=== PATIENT | female | born 1975 | race African-American/Black ===

== ENCOUNTER 2025-03-18 11:42 | Emergency (ER) | payer BC, SELFPAY ==
--- OUTSIDE RECORDS SUMMARY | 2025-03-17 13:15 | XMS_ITS | Encounter Summary ---
Author Organization [facility] Address [address] [place] [address] Phone Care Team Providers Care Eap Clinician Name Role Phone Casandra Merritt Primary Care Provider [phone] Roger Stevens DO Unavailable [phone] Tito Brasher MD Unavailable [phone] Tito Brasher MD Unavailable [phone] Reason for Visit * Radiology Services (Routine) - Closed Specialty Diagnoses / Procedures Referred By Mami watkins Referred To Contact Radiology Diagnoses Malignant neoplasm of overlapping sites of right breast in female, estrogen receptor positive (HCC) Use of aromatase inhibitors Encounter for screening for osteoporosis Procedures [facility] BONE DENSITOMETRY AXIAL SKELETON Mary Leal APRN, COMPUTER PROGRAMMER CHIEF [address] [place] [address], [facility] [address] [place] [address] Phone: tel: fax: Referral ID Status Reason Start Date Expiration Date Visits Re quested Visits Authorized [id number] Closed 11/05/2024 1 1 Encounter Details Date Type Department Care Team (Latest Contact Info) Description 03/17/2025 1:15 PM CDT Ancillary Procedure [facility] [address] [place] [phone] Malignant neoplasm of overlapping sites of right breast in female, estrogen receptor positive (HCC); Use of aromatase inhibitors; Encounter for screening for osteoporosis Social History Tobacco Use Types Packs/Day Years Used Date Smoking Tobacco: Former Cigarettes 0.5 6 1 996 - 2002 Smokeless Tobacco: Never Alcohol Use Standard Drinks/Week Comments Not Currently 0 (1 standard drink = 0.6 oz pur e alcohol) PHQ-2 Answer Date Recorded Total Score - Questions 1-9 0 02/01 Sexually Active Control Partners Comments Not Currently Comments Unknown Sex and Gender Information Value Date Recorded Sex Assigned at Female 02/14/2023 10:11 AM CDT Legal Sex Female 10:27 AM CDT Gender Identity Female 02/14/2023 10:11 AM CDT Sexual Orientation Not on file documented as of this encounter Plan of Treatment Upcoming Encounters Date Type Department Care Team (Late st Contact Info) Description 03/25/2025 9:15 AM CDT Lab [facility] [address] [phone] Lab, [place]alind [place] 03/25/2025 9:30 AM CDT Office Visit [facility] [address] [phone] Roger Stevens, DO [address] [place] [phone] 03/25/2025 10:00 AM CDT Clinical Support [facility] [address] [phone] Nurse, [facility] documented as of this encounter Procedures Procedure Name Priority Date/Time Associated Diagnosis Comments [facility] BONE DENSITOMETRY AXIAL SKELETON Routine 03/17/2025 1:42 PM CDT Malignant neoplasm of overlapping sites of right breast in female, estrogen receptor positive (HCC) Use of aromatase inhibitors Encounter for screening for osteoporosis documented in this encounter Results * [facility] BONE DENSITOMETRY AXIAL SKELETON (03/17/2025 1:42 PM CDT) Anatomical Region Laterality Modality BODY N/A Other Narrative 03/17/2025 3:28 PM CDT EXAMINATION: [facility] BONE DENSITOMETRY AXIAL SKELETON INDICATIONS: 50-year-old asymptomatic postmenopausal female. Malignant neoplasm of overlapping sites of right female breast. COMPARISON: DEXA scan March 30, 2023. TECHNIQUE: The bone mineral density of each site was assessed by dual energy x-ray absorptiometry. FINDINGS: Lumbar spine: The bone mineral density from L1-L4 is 1.2, which corresponds to a T-score of 0.3 and a Z-score of -0.2. Hip: The bone mineral density of the left femoral neck is 0.96, which corresponds to a T-score of -0.6 and a Z-score of -0.9. IMPRESSION Normal bone mineral density. Electronically signed by: HAMLET EVANS MD Date of Signature: 03/17/2025 15:28:17 Procedure Note Hamlet Evans MD - 03/17/2025 EXAMINATION: [facility] BONE DENSITOMETRY AXIAL SKELETON INDICATIONS: 50-year-old asymptomatic postmenopausal female. Malignant neoplasm ofoverlapping sites of right female breast. COMPARISON: DEXA scan March 30, 2023. TECHNIQUE: The bone mineral density of each site was assessed by dual energy x-rayabsorptiometry. FINDINGS: Lumbar spine: The bone mineral density from L1-L4 is 1.2, which corresponds to a T-scoreof 0.3 and a Z-score of -0.2. Hip: The bone mineral density of the left femoral neck is 0.96, whichcorresponds to a T-score of -0.6 and a Z-score of -0.9. IMPRESSION Normal bone mineral density. Electronically signed by: HAMLET EVANS MD Date of Signature: 03/17/2025 15:28:17 Mary Leal SUPERVISOR DRIED YEAST, COMPUTER PROGRAMMER CHIEF IMG DEXA ORDERABLES F inal Result documented in this encounter Visit Diagnoses Diagnosis Malignant neoplasm of overlapping sites of right breast in female, estrogen receptor positive (HCC) Use of aromatase inhibitors Encounter for screening for osteoporosis Special screening for osteoporosis documented in this encounter Additional Health Concerns Assessment Noted Time PHQ-9 Depression Total Score: 0 05/14/20 21 11:19 AM PROCESSING REP documented as of this encounter Care Teams Eap Clinician Relationship Specialty Start Date End Date Casandra Merritt [address] [place] [address] PCP - General Adult Medicine 03/24/21 Roger Stevens DO [address] [place] [phone] Consulting Physician Oncology 03/24/21 Tito Brasher MD [address] [place] [address] [phone] General Surgery 04/30/21 Tito Brasher MD [address] [place] [address] [phone] Surgeon General Surgery 04/20/21 documented as of this encounter
--- OUTSIDE RECORDS SUMMARY | 2025-03-17 13:15 | XMS_ITS | Encounter Summary ---
Author Organization [facility] Address [address] [place] [address] Phone Care Team Providers Care Proposal Writer Name Role Phone Casandra Merritt Primary Care Provider [phone] Roger Stevens DO Unavailable [phone] Tito Brasher MD Unavailable [phone] Tito Brasher MD Unavailable [phone] Reason for Visit * Radiology Services (Routine) - Closed Specialty Diagnoses / Procedures Referred By Mami watkins Referred To Contact Radiology Diagnoses Malignant neoplasm of overlapping sites of right breast in female, estrogen receptor positive (HCC) Use of aromatase inhibitors Encounter for screening for osteoporosis Procedures [facility] BONE DENSITOMETRY AXIAL SKELETON Mary Leal APRN, SECURITY ASSESSOR [address] [place] [address], [facility] [address] [place] [address] Phone: tel: fax: Referral ID Status Reason Start Date Expiration Date Visits Re quested Visits Authorized [id number] Closed 11/05/2024 1 1 Encounter Details Date Type Department Care Team (Latest Contact Info) Description 03/17/2025 1:15 PM CDT Ancillary Procedure [facility] [address] [place] [phone] Malignant neoplasm of overlapping sites of right [...] AM CDT Lab [facility] [address] [phone] Lab, [place]alind [place] 03/25/2025 9:30 AM CDT Office Visit [facility] [address] [phone] Roger Stevens, DO [address] [place] [phone] 03/25/2025 10:00 AM CDT Clinical Support [facility] [address] [phone] Nurse, [facility] documented as of this encounter Procedures Procedure Name Priority Date/Time Associated Diagnosis Comments [facility] BONE DENSITOMETRY AXIAL SKELETON Routine 03/17/2025 1:42 PM CDT Malignant neoplasm of overlapping sites of right breast in female, estrogen receptor positive (HCC) Use of aromatase inhibitors Encounter for screening for osteoporosis documented in this encounter Results * [facility] BONE DENSITOMETRY AXIAL SKELETON (03/17/2025 1:42 PM CDT) Anatomical Region Laterality Modality BODY N/A Other Narrative 03/17/2025 3:28 PM CDT EXAMINATION: [facility] BONE DENSITOMETRY AXIAL SKELETON INDICATIONS: 50-year-old asymptomatic [...] Date of Signature: 03/17/2025 15:28:17 Mary Leal WASTE PAPER HAMMERMILL OPERATOR, SECURITY ASSESSOR IMG DEXA ORDERABLES F inal Result documented in this encounter Visit Diagnoses Diagnosis Malignant neoplasm of overlapping sites of right breast in female, estrogen receptor positive (HCC) Use of aromatase inhibitors Encounter for screening for osteoporosis Special screening for osteoporosis documented in this encounter Additional Health Concerns Assessment Noted Time PHQ-9 Depression Total Score: 0 05/14/20 21 11:19 AM MOTORCYCLE FABRICATOR documented as of this encounter Care Teams Proposal Writer Relationship Specialty Start Date End Date Casandra Merritt [address] [place] [address] PCP - General Adult Medicine 03/24/21 Roger Stevens DO [address] [place] [phone] Consulting Physician Oncology 03/24/21 Tito Brasher MD [address] [place] [address] [phone] General Surgery 04/30/21 Tito Brasher MD [address] [place] [address] [phone] Surgeon General Surgery 04/20/21 documented as of this encounter
--- NOTE | ~2025-03-18 | CT_ITS ---
EXAMINATION: CT lumbar spine wo con DATE: 03/18/2025 13:36 INDICATION: Low back pain. TECHNIQUE: Computed tomography (CT) of the lumbar spine was performed without intravenous contrast. Automated exposure control and iterative reconstruction technique were employed. The dose-length product was 1073.77 mGy-cm. COMPARISON: None FINDINGS: Alignment is normal. Vertebral body heights are normal. Intervertebral disc heights are normal. The following disc levels are specifically discussed: L1-L2: There is a left foraminal protrusion. There is mild bilateral facet joint osteoarthritis. There is mild left neural foraminal stenosis. There is no central canal stenosis. L2-L3: The disc is bulging. There is mild bilateral facet joint osteoarthritis. There is mild bilateral neural foraminal stenosis. There is mild central canal stenosis. L3-L4: The disc is bulging. There is moderate right and mild left facet joint osteoarthritis. There is mild bilateral neural foraminal stenosis. There is mild central canal stenosis. L4-L5: The disc is bulging. There is severe bilateral facet joint osteoarthritis. There is mild bilateral neural foraminal stenosis. There is mild central canal stenosis. L5-S1: The disc is bulging. There is severe right and moderate left facet joint osteoarthritis. There is no neural foraminal stenosis. There is mild central canal stenosis. IMPRESSION: 1. Mild lumbar spondylosis. Reviewed, dictated and finalized at location E. IMPRESSION: 1. Mild lumbar spondylosis.
[2025-03-18 12:23] VITALS: BP 96/69; PULSE 95; RESP 18; TEMP 36.4; O2SAT 99
--- OUTSIDE RECORDS SUMMARY | 2025-03-18 13:43 | XMS_ITS ---
Author Organization [facility] Address [address] [place] [address] Phone Care Team Providers Care Lgsw Name Role Phone Casandra Merritt Primary Care Provider [phone] Roger Stevens DO Unavailable [phone] Tito Brasher MD Unavailable [phone] Tito Brasher MD Unavailable [phone] Active Problems Patient Care Coordination No te Formatting of this note migh t be different from the original. 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 Past Treatment and Therapy Plans ONCOLOGY SUPPORTIVE CARE Plan Name Start Date Discontinue Date Treatment Medications Discontinue Reason Plan Provider Cycles SUPPORT - GOSERELIN - [facility]I 2 02/10/2022 No medications scheduled. Plan Clean Up Rodney, Roger D, DO Treatment not started ONCOLOGY TREATMENT Plan Name Start Date Discontinue Date Treatment Medications Discontinue Reason Plan Provider Cycles BREAST - TAXOL WEEKLY - POST AC - [facility] 2 02/10/2023 PACLitaxel (TAXOL) chemo infusion Plan Clean Up Roger Stevens, DO 3 of 3 cycles started BREAST - DOSE-DENS E AC - [facility] 04/27/20 21 07/26/2021 cyclophosphamide (CYTOXAN) chemo infusionDOXOrubicin (ADRIAMYCIN) Regression Roger Stevens, DO 4 of 4 cycles started Lifetime Dose Tracking * Chemical Lifetime Dose Automatic Entry Manual Entr y Doxorubicin 240.659 mg/m2 (436.8 mg) 240.659 mg/m2 (4 36.8 mg) 0 mg/m2 (0 mg) Cyclophosphamide 2,402.259 mg/m2 (4,360 mg) 2,402.259 mg/m2 (4,360 mg) 0 mg/m2 (0 mg)
--- OUTSIDE RECORDS SUMMARY | 2025-03-18 13:43 | XMS_ITS | Clinical Summary ---
Author Organization [facility] Address [address] [place] [address] Phone Care Team Providers Care Aircraft Structural Design Engineer Name Role Phone Casandra Merritt Primary Care Provider [phone] Roger Stevens DO Unavailable [phone] Amisha Brasher MD Unavailable [phone] Amisha Brasher MD Unavailable Allergies No known active allergies Medications cetirizine (ZyrTEC) 10 MG Tablet TAKE 1 TABLET BY MOUTH EVERY DAY NEEDED 1 Active fluticasone (FLONASE) 50 MCG/ACT Suspension SHAKE LIQUID AND USE 1 SPRAY IN EACH NOSTRIL EVERY DAY NEEDED 1 Active albuterol 108 (90 Base) MCG/ACT Aerosol Solution take 2 Puffs by inhalation every 4 hours as needed. Active Flovent HFA 110 MCG/ACT Aerosol 1 Active Calcium Carbonate-Vit D-Min (CALCIUM 1200 PO) Take 1,500 mg by mouth daily. Active anastrozole (ARIMIDEX) 1 MG TabletIndication s:Malignant neoplasm of overlapping sites of right breast in female, estrogen receptor positive (HCC) TAKE 1 TABLET BY MOUTH DAILY 30 Tablet 5 5 Active venlafaxine (EFFEXOR-XR) 37.5 MG CAPSULE SR 24 HR TAKE 1 CAPSULE BY MOUTH DAILY 90 Capsule 1 Active Active Problems Patient Care Coordination No te Formatting of this note migh t be different from the original. 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 Malignant neoplasm of overla pping sites of right breast in female, estrogen receptor positive 04/21/2021 Encounters Date Type Department Care Team Description 03/17/2025 1:15 PM CDT Ancillary Procedure [facility] [address] [phone] Malignant neoplasm of overlapping sites of right breast in female, estrogen receptor positive (HCC); Use of aromatase inhibitors; Encounter for screening for osteoporosis 03/17/2025 Travel 02/25/2025 8:15 AM CDT Clinical Support [facility] [address] [phone] Nurse, [facility] [place] Malignant neoplasm of overlapping sites of right breast in female, estrogen receptor positive (HCC) (Primary Dx) 02/25/2025 Travel 01/28/2025 8:45 AM CDT Clinical Support [facility] [address] [phone] Nurse, [facility] [place] Malignant neoplasm of overlapping sites of right breast in female, estrogen receptor positive (HCC) (Primary Dx) 01/28/2025 Travel 01/27/2025 Telephone [facility] [address] [phone] Roger Stevens DO 01/14/2025 Refill [facility] [address] [phone] Roger Stevens, DO Medication Refill 12/31/2024 8:00 AM CDT Clinical Support [facility] [address] [phone] Nurse, [facility] [place] Malignant neoplasm of overlapping sites of right breast in female, estrogen receptor positive (HCC) (Primary Dx) 12/31/2024 Travel from Last 3 Months Immunizations Immunization Administration Dates Next Due Covid-19 Vaccine, Vector-nr, Rs-ad26, Pf, 0.5 Ml (JAZZY/J&J) 09/12/2020 Family History Medical History Relation Name Comments Hypertension Mother Relation Name Status Comments Father Alive Maternal Grandfather Maternal Grandmother Mother Alive Paternal Grandfather Paternal Grandmother Social History Tobacco Use Types Packs/Day Years Used Date Smoking Tobacco: Former Cigarettes 0.5 6 1 996 - 2001 Smokeless Tobacco: Never Tobacco Cessation:Counseling Given: Not Answered Alcohol Use Standard Drinks/Week Comments Not Currently [...] AM CDT Sexual Orientation Not on file Last Filed Vital Signs Vital Sign Reading Time Taken Comments Blood Pressure 120/82 11/05/2024 11:26 AM CDT Pulse 86 11/05/2024 11:26 AM CDT Temperature 36.6 C (97.8 F) 11/05/2024 11:26 AM CDT Respiratory Rate 18 11/05/2024 11:26 AM CDT Oxygen Saturation 99% 11/05/2024 11:26 AM CDT Inhaled Oxygen Concentration - - Weight 77.2 kg (170 lb 1.6 oz) 11/05/2024 11:26 AM CDT Height 160 cm (5' 3) 11/05/2024 11:26 AM CDT Body Mass Index 30.13 11/05/2024 11:26 AM CDT Plan of Treatment Upcoming Encounters Date Type Department Care Team (Late st Contact Info) Description 03/25/2025 9:15 AM CDT Lab [facility] [address] [phone] [facility] 03/25/2025 9:30 AM CDT Office Visit [facility] [address] [phone] Roger Stevens, [address] [place] [address] 03/25/2025 10:00 AM CDT Clinical Support [facility] [address] [phone] Nurse, Rosalind [facility] Health Maintenance Due Date Last Done Comments Hepatitis C Virus (HCV) Screening 1973 TdaP Immunization 1973 Hepatitis B Immunization (1 of 3 - 19+ 3-dose series) 01/10/1992 Pneumococcal Immunization (50+ years) (1 of 2 - PCV) 01/10/1992 Zoster Immunization (1 of 2) 01/10/1992 Pap Smear 1994 Cervical Cancer Screening (CCS) 2003 HPV/Cotest 2003 Cologuard 2018 Colonoscopy 2018 Colorectal Cancer Screening 2018 Immunochemical Fecal Occult Blood 2018 SARS-COV-2 Immunization (2 - Jazzy risk series) 10/10/2020 09/12/2020 Influenza Immunization (#1) 2025 Mammogram 03/18/2025 03/18/2024, 03/03, 03/17/2023, Additional history exists Respiratory Syncytial Virus (RSV) Immunization (Adult) (1 - 1-dose 75+ series) 01/10/2048 Discussion re Starting/Frequency of Mammograms Discontinued 03/18/2024, 09/09/2022, 11/23/2021, Additional history exists Human Papillomavirus (HPV) Immunization Aged Out No longer eligible based on patient's age to complete this topic Meningococcal Immunization (ACWY) Aged Out No longer eligible based on patient's age to complete this topic Rotavirus Immunization Aged Out No lo nger eligible based on patient's age to complete this topic Procedures Procedure Name Priority Date/Time Associated Diagnosis Comments [facility] BONE DENSITOMETRY AXIAL SKELETON Routine 03/17/2025 1:42 PM CDT Malignant neoplasm of overlapping sites of right breast in female, estrogen receptor positive (HCC) Use of aromatase inhibitors Encounter for screening for osteoporosis MAMMOGRAM BILATERAL GENERIC Routine 03/30/2021 from Last 3 Months or Most Recently Relevant to Health Maintenance Results * [facility] BONE DENSITOMETRY AXIAL SKELETON (03/17/2025 1:42 PM CDT) Anatomical Region Laterality Modality BODY N/A Other Narrative 03/17/2025 3:28 PM CDT EXAMINATION: [facility] BONE DENSITOMETRY AXIAL SKELETON INDICATIONS: 50-year-old asymptomatic [...] Normal bone mineral density. Electronically signed by: CARLOS EVANS MD Date of Signature: 03/17/2025 15:28:17 Procedure Note Carlos Evans MD - 03/17/2025 EXAMINATION: [facility] BONE DENSITOMETRY AXIAL SKELETON INDICATIONS: 50-year-old asymptomatic [...] Normal bone mineral density. Electronically signed by: CARLOS EVANS MD Date of Signature: 03/17/2025 15:28:17 Mary Leal AIR POLLUTION INSPECTOR, GENERAL SURGERY PHYSICIAN ASSISTANT IMG DEXA ORDERABLES F inal Result * MAMMOGRAM BILATERAL MISCELLANEOUS (03/30/2021) Tonie Laguna AIR POLLUTION INSPECTOR, GENERAL SURGERY PHYSICIAN ASSISTANT IMG MAMMO ORDERABLES Edit ed Result - Final from Last 3 Months or Most Recently Relevant to Health Maintenance Insurance [facility] Care Teams Aircraft Structural Design Engineer Relationship Specialty Start Date End Date Casandra Merritt [address] [place] [address] PCP - General Adult Medicine 03/24/21 Roger Stevens DO [address] [place] [phone] Consulting Physician Oncology 03/24/21 Amisha Brasher MD [address] [place] [address] General Surgery 04/30/21 Amisha Brasher MD [address] [place] [address] [phone] Surgeon General Surgery 04/20/21
--- OUTSIDE RECORDS SUMMARY | 2025-03-18 13:43 | XMS_ITS | Encounter Summary ---
Author Organization [facility] Address [address] [place] [address] Phone Care Team Providers Care Concrete Mixer Operator Name Role Phone Casandra Merritt Primary Care Provider [phone] Roger Stevens DO Unavailable [phone] Tito Brasher MD Unavailable [phone] Tito Brasher MD Unavailable [phone] Encounter Details Date Type Department Care Team (Late st Contact Info) Description 07/06/2021 Telephone [facility] [address] [place] [address] Roger Stevens, DO [address] [place] [address] Social History Tobacco Use Types Packs/Day Years Used Date Smoking Tobacco: Former Cigarettes 0.5 6 1 996 - 2002 Smokeless Tobacco: Never Alcohol Use Standard Drinks/Week Comments Not Currently 0 (1 standard drink = 0.6 oz pur e alcohol) PHQ-2 Answer Date Recorded Total Score - Questions 1-9 0 06/03 Sexually Active Control Partners Comments Not Currently Comments Unknown Sex and Gender Information Value Date Recorded Sex Assigned at Female 02/14/2023 10:11 AM CDT Legal Sex Female 10:27 AM CDT Gender Identity Female 02/14/2023 10:11 AM CDT Sexual Orientation Not on file COVID-19 Exposure Response Date Recorded In the last month, have you been in contact with someone who was confirmed or suspected to have Coronavirus / COVID-19? No / Unsure 07/06/2021 8:29 AM ASPHALT DISTRIBUTOR OPERATOR documented as of this encounter Miscellaneous Notes * Telephone Encounter - Darlin Cano - 07/06/2021 8:41 AM CST Called pt and she is have sinus symptoms. Pt is scheduled to get PCR covid test Monday. Rescheduledfor next Monday. Pt to call if test results are not back by then or If it is positive. ALT DISTRIBUTOR OPERATOR * Telephone Encounter - Sandra Edmondson - 07/06/2021 8:24 AM CST Patient called to reschedule her infusion scheduled for today. Patient states that she has been exposed to Covid and is having flu-like symptoms. Spoke with Darlin in Infusion and she stated that she would call Mrs. Mccarty and get her rescheduled. ALT DISTRIBUTOR OPERATOR documented in this encounter Plan of Treatment Upcoming Encounters Date Type Department Care Team (Late st Contact Info) Description 03/25/2025 9:15 AM CDT Lab [facility] [address] [address] Lab, [place] 03/25/2025 9:30 AM CDT Office Visit [facility] [address] [phone] Roger Stevens, DO [address] [place] [phone] 03/25/2025 10:00 AM CDT Clinical Support [facility] [address] [phone] Nurse, [place]n [place] documented as of this encounter Visit Diagnoses Not on filedocumented in this encounter Additional Health Concerns Assessment Noted Time PHQ-9 Depression Total Score: 0 05/14/20 21 11:19 AM ASPHALT DISTRIBUTOR OPERATOR documented as of this encounter Care Teams Concrete Mixer Operator Relationship Specialty Start Date End Date Casandra Merritt [address] [place] [address] PCP - General Adult Medicine 03/24/21 Roger Stevens DO [address] [place] [phone] Consulting Physician Oncology 03/24/21 Tito Brasher MD [address] [place] [address] [phone] General Surgery 04/30/21 Tito Brasher MD [address] [place] [address] [phone] Surgeon General Surgery 04/20/21 documented as of this encounter
--- OUTSIDE RECORDS SUMMARY | 2025-03-18 13:43 | XMS_ITS | Encounter Summary ---
Author Organization [employer] Care Team Providers Care Fiber Worker Name Role Phone Casandra Merritt Primary Care Provider [phone] Roger Stevens DO Unavailable [phone] Tito Brasher MD Unavailable Tito Brasher MD Unavailable [phone] Encounter Details Date Type Department Care Team (Latest Contact Info) Description 03/17/2025 Travel Social History Tobacco Use Types Packs/Day Years [...] AM CDT Lab [facility] [address] [phone] Lab, [facility] 03/25/2025 9:30 AM CDT Office Visit [facility] [address] [phone] Roger Stevens DO [address] [place] [phone] 03/25/2025 10:00 AM CDT Clinical Support [facility] [address] [phone] Nurse, Cc [facility] documented as of this encounter Visit Diagnoses Not on filedocumented in this encounter Additional Health Concerns Assessment Noted Time PHQ-9 Depression Total Score: 0 05/14/20 21 11:19 AM COMBATANT DIVER OFFICER documented as of this encounter Care Teams Fiber Worker Relationship Specialty Start Date End Date Casandra Merritt [address] [place] [address] PCP - General Adult Medicine 03/24/21 Roger Stevens DO [address] [place] [phone] Consulting Physician Oncology 03/24/21 Tito Brasher MD [address] [place] [address] [phone] General Surgery 04/30/21 Tito Brasher MD [address] [place] [address] [phone] Surgeon General Surgery 04/20/21 documented as of this encounter
--- OUTSIDE RECORDS SUMMARY | 2025-03-18 13:43 | XMS_ITS | Encounter Summary ---
Author Organization [facility] Address [address] [place] [address] Phone Care Team Providers Care Welder Tech Name Role Phone Casandra Merritt Primary Care Provider [phone] Roger Stevens DO Unavailable [phone] Tito Brasher MD Unavailable [phone] Tito Brasher MD Unavailable [phone] Reason for Visit * Reason Comments Medication Refill Encounter Details Date Type Department Care Team (Late st Contact Info) Description 11/08/2023 Refill [facility] [place] [address] [place] [address] Brit Carter, SUPERVISOR DETASSELING CREW, GOLF COURSE ARCHITECT [address] [place] [address] Medication Refill Social History Tobacco Use Types Packs/Day Years [...] on file documented as of this encounter Miscellaneous Notes * Telephone Encounter - Justa Rosario RN - 11/08/2023 12:04 PM CDT Refill request from pharmacy. Please fill if appropriate. documented in this encounter Plan of Treatment Upcoming Encounters Date Type Department Care Team (Late st Contact Info) Description 03/25/2025 9:15 AM CDT Lab [facility] [address] [phone] Lab, [facility] 03/25/2025 9:30 AM CDT Office Visit [facility] [address] [phone] Roger Stevens DO [address] [place] [phone] 03/25/2025 10:00 AM CDT Clinical Support [facility] [address] [phone] Nurse, [facility] documented as of this encounter Visit Diagnoses Diagnosis Malignant neoplasm of overlapping sites of right breast in female, estrogen receptor positive (HCC) documented in this encounter Additional Health Concerns Assessment Noted Time PHQ-9 Depression Total Score: 0 05/14/20 21 11:19 AM AUTOMOTIVE PAINTER documented as of this encounter Care Teams Welder Tech Relationship Specialty Start Date End Date Casandra Merritt [address] [place] [address] PCP - General Adult Medicine 03/24/21 Roger Stevens DO [address] [place] [phone] Consulting Physician Oncology 03/24/21 Tito Brasher MD [address] [address] General Surgery 04/30/21 Tito Brasher MD [address] [address] Surgeon General Surgery 04/20/21 documented as of this encounter
--- OUTSIDE RECORDS SUMMARY | 2025-03-18 13:43 | XMS_ITS | Encounter Summary ---
Author Organization [facility] Address [address] [place] [address] Phone Care Team Providers Care Rag Grader Name Role Phone Casandra Merritt Primary Care Provider [phone] Roger Stevens DO Unavailable [phone] Tito Brasher MD Unavailable [phone] Tito Brasher MD Unavailable [phone] Encounter Details Date Type Department Care Team (Late st Contact Info) Description 07/13/2021 Telephone [facility] [place] [address] [place] [address] Roger Stevens, DO [address] [place] [address] Social History Tobacco Use Types [...] COVID-19? No / Unsure 07/06/2021 8:29 AM DISEASE CONTROL INSPECTOR documented as of this encounter Miscellaneous Notes * Telephone Encounter - Lisandra Pérez - 07/13/2021 8:49 AM CST PT CANCELLED APPT TODAY, WAITING FOR RESULTS OF COVID SCREEN TEST, UNKNOWN WHEN RESULTS WILL BE IN.WILL RESCHEDULE AFTER RESULTS ARE KNOWN ASE CONTROL INSPECTOR documented in this encounter Plan of Treatment Upcoming Encounters Date Type Department Care Team (Late st Contact Info) Description 03/25/2025 9:15 AM CDT Lab [facility] [address] [phone] Lab, [facility] 03/25/2025 9:30 AM CDT Office Visit [facility] [address] [phone] Roger Stevens DO [address] [place] [phone] 03/25/2025 10:00 AM CDT Clinical Support [facility] [address] [phone] Nurse, [facility] documented as of this encounter Visit Diagnoses Not on filedocumented in this encounter Additional Health Concerns Assessment Noted Time PHQ-9 Depression Total Score: 0 05/14/20 21 11:19 AM DISEASE CONTROL INSPECTOR documented as of this encounter Care Teams Rag Grader Relationship Specialty Start Date End Date Casandra Merritt [address] [place] [address] PCP - General Adult Medicine 03/24/21 Roger Stevens DO [address] [place] [phone] Consulting Physician Oncology 03/24/21 Tito Brasher MD [address] [address] General Surgery 04/30/21 Tito Brasher MD [address] [address] Surgeon General Surgery 04/20/21 documented as of this encounter
--- OUTSIDE RECORDS SUMMARY | 2025-03-18 13:43 | XMS_ITS | Encounter Summary ---
Author Organization [facility] Address [address] [place] [address] Phone Care Team Providers Care Websphere Administrator Name Role Phone Casandra Merritt Primary Care Provider [phone] Roger Stevens DO Unavailable [phone] Tito Brasher MD Unavailable [phone] Tito Brasher MD Unavailable [phone] Reason for Visit * Reason Comments Medication Refill Encounter Details Date Type Department Care Team (Late st Contact Info) Description 06/18/2022 Refill [facility] [place] [address] [place] [address] Roger Stevens, DO [address] [place] [address] Medication Refill Social History Tobacco Use Types [...] Exposure Response Date Recorded In the last 10 days, have yo u been in contact with someone who was confirmed or suspected to have Coronavirus/COVID-19? No / Unsure 05/23/2022 8:01 AM FUEL CELL BATTERY TECHNICIAN documented as of this encounter Miscellaneous Notes * Telephone Encounter - Justa Rosario RN - 06/20/2022 8:50 AM CST refill request from pharmacy CELL BATTERY TECHNICIAN documented in this encounter Plan of Treatment Upcoming Encounters Date Type Department Care Team (Late st Contact Info) Description 03/25/2025 9:15 AM CDT Lab [facility] [address] [phone] Lab, [facility] 03/25/2025 9:30 AM CDT Office Visit [facility] [address] [phone] Roger Stevens DO [address] [place] [phone] 03/25/2025 10:00 AM CDT Clinical Support [facility] [address] [phone] Nurse, [facility] documented as of this encounter Visit Diagnoses Not on filedocumented in this encounter Additional Health Concerns Assessment Noted Time PHQ-9 Depression Total Score: 0 05/14/20 21 11:19 AM FUEL CELL BATTERY TECHNICIAN documented as of this encounter Care Teams Websphere Administrator Relationship Specialty Start Date End Date Casandra Merritt [address] [place] [address] PCP - General Adult Medicine 03/24/21 Roger Stevens DO [address] [place] [phone] Consulting Physician Oncology 03/24/21 [place] [address] [place] [address] General Surgery 04/30/21 Tito Brasher MD [address] [address] Surgeon General Surgery 04/20/21 documented as of this encounter
--- OUTSIDE RECORDS SUMMARY | 2025-03-18 13:43 | XMS_ITS | Encounter Summary ---
Author Organization [facility] Address [address] [place] [address] Phone Care Team Providers Care Aligner Typewriter Name Role Phone Casandra Merritt Primary Care Provider [phone] Roger Stevens DO Unavailable [phone] Tito Brasher MD Unavailable [phone] Tito Brasher MD Unavailable [phone] Reason for Visit * Reason Comments Medication Refill Encounter Details Date Type Department Care Team (Late st Contact Info) Description 07/10/2023 Refill [facility] [place] [address] [place] [address] Brit Carter, BUN PANNER, CUTTING PRESSMAN [address] [place] [address] Medication Refill Social History Tobacco [...] Telephone Encounter - Justa Rosario RN - 07/10/2023 11:36 AM CST Refill request from pharmacy. Please fill if appropriate. SERVICES PROFESSIONAL documented in this encounter Plan of Treatment Upcoming Encounters Date Type Department Care Team (Late st Contact Info) Description 03/25/2025 9:15 AM CDT Lab [facility] [address] [phone] Lab, [facility] 03/25/2025 9:30 AM CDT Office Visit [facility] [address] [phone] Roger Stevens DO [address] [place] [phone] 03/25/2025 10:00 AM CDT Clinical Support [facility] [address] [phone] Nurse, [facility] documented as of this encounter Visit Diagnoses Diagnosis Malignant neoplasm of overlapping sites of right breast in female, estrogen receptor positive (HCC) documented in this encounter Additional Health Concerns Assessment Noted Time PHQ-9 Depression Total Score: 0 05/14/20 21 11:19 AM WEB SERVICES PROFESSIONAL documented as of this encounter Care Teams Aligner Typewriter Relationship Specialty Start Date End Date Casandra Merritt [address] [place] [address] PCP - General Adult Medicine 03/24/21 Roger Stevens DO [address] [place] [phone] Consulting Physician Oncology 03/24/21 Tito Brasher MD [address] [address] General Surgery 04/30/21 Tito Brasher MD [address] [address] Surgeon General Surgery 04/20/21 documented as of this encounter
--- OUTSIDE RECORDS SUMMARY | 2025-03-18 13:43 | XMS_ITS | Encounter Summary ---
Author Organization [facility] Address [address] [place] [address] Phone Care Team Providers Care Courtesy Clerk Name Role Phone Casandra Merritt Primary Care Provider [phone] Roger Stevens DO Unavailable [phone] Tito Brasher MD Unavailable [phone] Tito Brasher MD Unavailable [phone] Reason for Visit * Reason Comments Medication Refill Encounter Details Date Type Department Care Team (Late st Contact Info) Description 10/30/2022 Refill [facility] [address] [address] Timothy Adams, PAC Medication Refill Social History Tobacco Use Types [...] suspected to have Coronavirus/COVID-19? No / Unsure 10/18/2022 8:40 AM CDT documented as of this encounter Miscellaneous Notes * Telephone Encounter - Justa Rosario RN - 10/31/2022 8:06 AM CDT Refill request from pharmacy. Please fill if appropriate. documented in this encounter Plan of Treatment Upcoming Encounters Date Type Department Care Team (Late st Contact Info) Description 03/25/2025 9:15 AM CDT Lab [facility] [address] [phone] Lab, [facility] 03/25/2025 9:30 AM CDT Office Visit [facility] [address] [phone] Roger Stevens DO [address] [place] [phone] 03/25/2025 10:00 AM CDT Clinical Support [facility] [address] [phone] Nurse, [facility] documented as of this encounter Visit Diagnoses Diagnosis Malignant neoplasm of overlapping sites of right breast in female, estrogen receptor positive (HCC) documented in this encounter Additional Health Concerns Assessment Noted Time PHQ-9 Depression Total Score: 0 05/14/20 21 11:19 AM ENTRY LEVEL SOFTWARE DEVELOPER documented as of this encounter Care Teams Courtesy Clerk Relationship Specialty Start Date End Date Casandra Merritt [address] [place] [address] PCP - General Adult Medicine 03/24/21 Roger Stevens DO [address] [place] [phone] Consulting Physician Oncology 03/24/21 Tito Brasher MD [address] [address] General Surgery 04/30/21 Tito Brasher MD [address] [phone] Surgeon General Surgery 04/20/21 documented as of this encounter
--- OUTSIDE RECORDS SUMMARY | 2025-03-18 13:43 | XMS_ITS | Encounter Summary ---
Author Organization [facility] Address [address] [place] [address] Phone Care Team Providers Care Crm Architect Name Role Phone Casandra Merritt Primary Care Provider [phone] Roger Stevens DO Unavailable [phone] Tito Brasher MD Unavailable [phone] Tito Brasher MD Unavailable [phone] Reason for Visit * Reason Comments Medication Refill Encounter Details Date Type Department Care Team (Late st Contact Info) Description 10/26/2024 Refill [facility] [place] [address] [place] [address] Mary Leal, MANAGER ANALYSIS, POCKET CREASER [address] [place] [address] [address] [place] [address] Medication Refill Social History Tobacco [...] AM CDT Lab [facility] [address] [phone] Lab, [facility] 03/25/2025 9:30 AM CDT Office Visit [facility] [address] [phone] Roger Stevens DO [address] [place] [phone] 03/25/2025 10:00 AM CDT Clinical Support [facility] [address] [phone] Nurse, [facility] documented as of this encounter Visit Diagnoses Diagnosis Malignant neoplasm of overlapping sites of right breast in female, estrogen receptor positive (HCC) documented in this encounter Additional Health Concerns Assessment Noted Time PHQ-9 Depression Total Score: 0 05/14/20 11:19 AM THREAD CLIPPER documented as of this encounter Care Teams Crm Architect Relationship Specialty Start Date End Date René Casandra Nemo [address] [place] [address] PCP - General Adult Medicine 03/24/21 Roger Stevens DO [address] [place] [phone] Consulting Physician Oncology 03/24/21 Tito Brasher MD [address] [place] [address] General Surgery 04/30/21 Tito Brasher MD [address] [place] [address] Surgeon General Surgery 04/20/21 documented as of this encounter
[2025-03-18] MEDS: MORPHINE SULFATE (*CRX) 4 MG/ML INJ IV PUSH (14:00)
[2025-03-18] MEDS: ONDANSETRON INJ 4 MG/2 ML VIAL IV PUSH (14:00)
[2025-03-18 14:11] LABS: Hematocrit 38.9 % (37.0-47.0); Hemoglobin 12.5 g/dL (12.0-15.0); Immature Granulocyte Percent A 0.3 % (0-0.5); Lymphocytes Absolute Auto 1.48 K/mm3 (0.9-3.2); Mean Corpuscular HGB Conc 32.1 g/dl (32-36); Mean Corpuscular Hemoglobin 26.7 pg (26-34); Mean Corpuscular Volume 83.1 fl (80-100); Nucleated Red Blood Cells Absolute Auto 0.000 K/mm3 (0.0-0.012); Nucleated Red Blood Cells Perc 0.0 % (0.0-0.2); Platelet Count Result 248 k/mm3 (150-375); Red Blood Count 4.68 M/mm3 (4.2-5.4); White Blood Count 9.8 K/mm3 (4.5-10.0)
[2025-03-18 14:13] LABS: Add Urine Microscopic? YES; Appearance Urine Cloudy (Clear); Glucose Urine UA Negative (Negative); Leukocyte Esterase Ur Trace LEU/UL (Negative); Nitrate Urine Negative (Negative); Non Pathogenic Casts 0-2; Specific Grav Ur 1.032 (1.001-1.035)
[2025-03-18 14:23] LABS: Anion Gap 7 mmol/L (4-12); Blood Urea Nitrogen 14 mg/dL (7-17); Calcium 9.3 mg/dL (8.4-10.2); Carbon Dioxide 27 mmol/L (22-30); Chloride 106 mmol/L (98-107); Estimated CRCL calculation 59 ml/min; Estimated Glomerular Filt Rate 60; Glucose 122 mg/dL (65-110); Potassium 3.9 mmol/L (3.4-5.0); Sodium 140 mmol/L (137-145)
--- OUTSIDE RECORDS SUMMARY | 2025-03-18 14:44 | XMS_ITS | Encounter Summary ---
Author Organization [facility] Address [address] [place] [address] Phone Care Team Providers Care Material Controller Name Role Phone Casandra Merritt Primary Care Provider [phone] Roger Stevens DO Unavailable [phone] Tito Brasher MD Unavailable [phone] Tito Brasher MD Unavailable [phone] Reason for Visit * Reason Comments Medication Refill Encounter Details Date Type Department Care Team (Late st Contact Info) Description 06/18/2022 Refill [facility] [place] [address] [place] [address] Roger Stevens, DO [address] [place] [address] Medication Refill Social History Tobacco [...] Coronavirus/COVID-19? No / Unsure 05/23/2022 8:01 AM BEAM PRESS OPERATOR documented as of this encounter Miscellaneous Notes * Telephone Encounter - Justa Rosario RN - 06/20/2022 8:50 AM CST refill request from pharmacy PRESS OPERATOR documented in this encounter Plan of Treatment Upcoming Encounters Date Type Department Care Team (Late st Contact Info) Description 03/25/2025 9:15 AM CDT Lab [facility] [address] [phone] Lab, [facility] 03/25/2025 9:30 AM CDT Office Visit [facility] [address] [phone] Roger Stevens DO [address] [place] [phone] 03/25/2025 10:00 AM CDT Clinical Support [facility] [address] [phone] Nurse, [facility] documented as of this encounter Visit Diagnoses Not on filedocumented in this encounter Additional Health Concerns Assessment Noted Time PHQ-9 Depression Total Score: 0 05/14/20 21 11:19 AM BEAM PRESS OPERATOR documented as of this encounter Care Teams Material Controller Relationship Specialty Start Date End Date Casandra Merritt [address] [place] [address] PCP - General Adult Medicine 03/24/21 Roger Stevens DO [address] [place] [phone] Consulting Physician Oncology 03/24/21 [place] [address] [place] [address] General Surgery 04/30/21 Tito Brasher MD [address] [address] Surgeon General Surgery 04/20/21 documented as of this encounter
--- OUTSIDE RECORDS SUMMARY | 2025-03-18 14:44 | XMS_ITS | Encounter Summary ---
Author Organization [facility] Address [address] [place] [address] Phone Care Team Providers Care Cost Coordinator Name Role Phone Casandra Merritt Primary Care Provider [phone] Roger Stevens DO Unavailable [phone] Tito Brasher MD Unavailable [phone] Tito Brasher MD Unavailable [phone] Reason for Visit * Reason Comments Medication Refill Encounter Details Date Type Department Care Team (Late st Contact Info) Description 10/30/2022 Refill [facility] [address] [address] Timothy Adams, PAC Medication Refill [...] AM CDT Lab [facility] [address] [phone] Lab, [facility] 03/25/2025 9:30 AM CDT Office Visit [facility] [address] [phone] Roger Stevens DO [address] [place] [phone] 03/25/2025 10:00 AM CDT Clinical Support [facility] [address] [phone] Nurse, [facility] documented as of this encounter Visit Diagnoses Diagnosis Malignant neoplasm of overlapping sites of right breast in female, estrogen receptor positive (HCC) documented in this encounter Additional Health Concerns Assessment Noted Time PHQ-9 Depression Total Score: 0 05/14/20 21 11:19 AM WINDER OPERATOR documented as of this encounter Care Teams Cost Coordinator Relationship Specialty Start Date End Date Casandra Merritt [address] [place] [address] PCP - General Adult Medicine 03/24/21 Roger Stevens DO [address] [place] [phone] Consulting Physician Oncology 03/24/21 Tito Brasher MD [address] [address] General Surgery 04/30/21 Tito Brasher MD [address] [phone] Surgeon General Surgery 04/20/21 documented as of this encounter
--- OUTSIDE RECORDS SUMMARY | 2025-03-18 14:44 | XMS_ITS | Encounter Summary ---
Author Organization [facility] Address [address] [place] [address] Phone Care Team Providers Care Aemt Name Role Phone Casandra Merritt Primary Care Provider [phone] Roger Stevens DO Unavailable [phone] Tito Brasher MD Unavailable [phone] Tito Brasher MD Unavailable [phone] Reason for Visit * Reason Comments Medication Refill Encounter Details Date Type Department Care Team (Late st Contact Info) Description 10/26/2024 Refill [facility] [place] [address] [place] [address] Mary Leal, COOK SOUP, DULL COAT MILL OPERATOR [address] [place] [address] [address] [place] [address] Medication Refill Social History Tobacco [...] AM CDT Lab [facility] [address] [phone] Lab, [facility] 03/25/2025 9:30 AM CDT Office Visit [facility] [address] [phone] Roger Stevens DO [address] [place] [phone] 03/25/2025 10:00 AM CDT Clinical Support [facility] [address] [phone] Nurse, [facility] documented as of this encounter Visit Diagnoses Diagnosis Malignant neoplasm of overlapping sites of right breast in female, estrogen receptor positive (HCC) documented in this encounter Additional Health Concerns Assessment Noted Time PHQ-9 Depression Total Score: 0 05/14/20 11:19 AM COAL YARD SUPERVISOR documented as of this encounter Care Teams Aemt Relationship Specialty Start Date End Date René Casandra Nemo [address] [place] [address] PCP - General Adult Medicine 03/24/21 Roger Stevens DO [address] [place] [phone] Consulting Physician Oncology 03/24/21 Tito Brasher MD [address] [place] [address] General Surgery 04/30/21 Tito Brasher MD [address] [place] [address] Surgeon General Surgery 04/20/21 documented as of this encounter
--- OUTSIDE RECORDS SUMMARY | 2025-03-18 14:44 | XMS_ITS | Encounter Summary ---
Author Organization [facility] Address [address] [place] [address] Phone Care Team Providers Care Heavy Duty Mechanic Farm Equipment Name Role Phone Casandra Merritt Primary Care Provider [phone] Roger Stevens DO Unavailable [phone] Tito Brasher MD Unavailable [phone] Tito Brasher MD Unavailable [phone] Reason for Visit * Reason Comments Medication Refill Encounter Details Date Type Department Care Team (Late st Contact Info) Description 11/08/2023 Refill [facility] [place] [address] [place] [address] Brit Carter, BEAUTY SHOP MANAGER, ENVIRONMENTAL HEALTH MANAGER [address] [place] [address] Medication Refill Social History Tobacco [...] AM CDT Lab [facility] [address] [phone] Lab, [facility] 03/25/2025 9:30 AM CDT Office Visit [facility] [address] [phone] Roger Stevens DO [address] [place] [phone] 03/25/2025 10:00 AM CDT Clinical Support [facility] [address] [phone] Nurse, [facility] documented as of this encounter Visit Diagnoses Diagnosis Malignant neoplasm of overlapping sites of right breast in female, estrogen receptor positive (HCC) documented in this encounter Additional Health Concerns Assessment Noted Time PHQ-9 Depression Total Score: 0 05/14/20 21 11:19 AM ATTENDANT SALES documented as of this encounter Care Teams Heavy Duty Mechanic Farm Equipment Relationship Specialty Start Date End Date Casandra Merritt [address] [place] [address] PCP - General Adult Medicine 03/24/21 Roger Stevens DO [address] [place] [phone] Consulting Physician Oncology 03/24/21 Tito Brasher MD [address] [address] General Surgery 04/30/21 Tito Brasher MD [address] [address] Surgeon General Surgery 04/20/21 documented as of this encounter
--- OUTSIDE RECORDS SUMMARY | 2025-03-18 14:44 | XMS_ITS | Clinical Summary ---
Author Organization [facility] Address [address] [place] [address] Phone Care Team Providers Care Oil Field Pipeline Supervisor Name Role Phone Casandra Merritt Primary Care Provider [phone] Roger Stevens DO Unavailable [phone] Amisha Brasher MD Unavailable [phone] Amisha Brasher MD Unavailable [phone] Allergies No known active allergies Medications cetirizine [...] different from the original. 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 Malignant neoplasm of overla pping sites of right breast in female, estrogen receptor positive 04/21/2021 Encounters Date Type Department Care Team Description 03/17/2025 1:15 PM CDT Ancillary Procedure [facility] [address] [address] Malignant neoplasm of overlapping sites of right breast in female, estrogen receptor positive (HCC); Use of aromatase inhibitors; Encounter for screening for osteoporosis 03/17/2025 Travel 02/25/2025 8:15 AM CDT Clinical Support [facility] [address] [address] Nurse, Cc [place] Malignant neoplasm of overlapping sites of right breast in female, estrogen receptor positive (HCC) (Primary Dx) 02/25/2025 Travel 01/28/2025 8:45 AM CDT Clinical Support [facility] [address] [address] Nurse, Cc [place] Malignant neoplasm of overlapping sites of right breast in female, estrogen receptor positive (HCC) (Primary Dx) 01/28/2025 Travel 01/27/2025 Telephone [facility] [address] [address] Roger Stevens DO 01/14/2025 Refill [facility] [address] [address] Rgoer Stevens, DO Medication Refill 12/31/2024 8:00 AM CDT Clinical Support [facility] [address] [address] Nurse, Cc [place] Malignant neoplasm of overlapping [...] AM CDT Lab [facility] [address] [phone] [facility] 03/25/2025 9:30 AM CDT Office Visit [facility] [address] [phone] Roger Stevens, [address] [place] [address] 03/25/2025 10:00 AM CDT Clinical Support [facility] [address] [address] Nurse, Rosalind [facility] Health Maintenance Due Date Last Done [...] Recently Relevant to Health Maintenance Results * [facility] BONE DENSITOMETRY AXIAL SKELETON (03/17/2025 1:42 PM CDT) Anatomical Region Laterality Modality BODY N/A Other Narrative 03/17/2025 3:28 PM CDT EXAMINATION: [facility] BONE DENSITOMETRY AXIAL SKELETON INDICATIONS: 50-year-old [...] Note Carlos Evans MD - 03/17/2025 EXAMINATION: [facility] BONE DENSITOMETRY AXIAL SKELETON INDICATIONS: 50-year-old [...] Date of Signature: 03/17/2025 15:28:17 Mary Leal RECAPPER, LENS CLEANER IMG DEXA ORDERABLES F inal Result * MAMMOGRAM BILATERAL MISCELLANEOUS (03/30/2021) Tonie Laguna RECAPPER, LENS CLEANER IMG MAMMO ORDERABLES Edit ed Result - Final from Last 3 Months or Most Recently Relevant to Health Maintenance Insurance [facility] Care Teams Oil Field Pipeline Supervisor Relationship Specialty Start Date End Date Casandra Merritt [address] [place] [address] PCP - General Adult Medicine 03/24/21 Roger Stevens DO [address] [place] [phone] Consulting Physician Oncology 03/24/21 Amisha Brasher MD [address] [place] [id number] General Surgery 04/30/21 Amisha Brasher MD [address] [place] [address] [id number] Surgeon General Surgery 04/20/21
--- OUTSIDE RECORDS SUMMARY | 2025-03-18 14:44 | XMS_ITS | Encounter Summary ---
Author Organization [employer] Care Team Providers Care Residential Nurse Name Role Phone Casandra Merritt Primary Care Provider [phone] Roger Stevens DO Unavailable [phone] Tito Brasher MD Unavailable [phone] Tito Brasher MD Unavailable [phone] Encounter Details Date Type Department Care Team [...] AM CDT Lab [facility] [address] [phone] Lab, Rosalind [facility] 03/25/2025 9:30 AM CDT Office Visit [facility] [address] [phone] Roger Stevens DO [address] [place] [phone] 03/25/2025 10:00 AM CDT Clinical Support [facility] [address] [phone] Nurse, Cc [facility] documented as of this encounter Visit Diagnoses Not on filedocumented in this encounter Additional Health Concerns Assessment Noted Time PHQ-9 Depression Total Score: 0 05/14/20 21 11:19 AM INTELLECTUAL PROPERTY MANAGER documented as of this encounter Care Teams Residential Nurse Relationship Specialty Start Date End Date Casandra Merritt [address] [place] [address] PCP - General Adult Medicine 03/24/21 Roger Stevens DO [address] [place] [phone] Consulting Physician Oncology 03/24/21 Tito Brasher MD [address] [place] [address] [id number] General Surgery 04/30/21 Tito Brasher MD [address] [place] [address] [id number] Surgeon General Surgery 04/20/21 documented as of this encounter
--- OUTSIDE RECORDS SUMMARY | 2025-03-18 14:44 | XMS_ITS ---
Author Organization [facility] Address [address] [place] [address] Phone Care Team Providers Care Motocross Racer Name Role Phone Casandra Merritt Primary Care Provider [phone] Roger Stevens DO Unavailable [phone] Tito Brasher MD Unavailable Tito Brasher MD Unavailable [phone] Active Problems Patient Care Coordination No te Formatting of this note migh t be different from the original. TITO BRASHER MD [phone] FAX [phone] Problem Noted Date Diagnosed Date Renal vein [...]
--- OUTSIDE RECORDS SUMMARY | 2025-03-18 14:44 | XMS_ITS | Encounter Summary ---
Author Organization [facility] Address [address] [place] [address] Phone Care Team Providers Care Automation Specialist Name Role Phone Casandra Merritt Primary Care Provider [phone] Roger Stevens DO Unavailable [phone] Tito Brasher MD Unavailable [phone] Tito Brasher MD Unavailable [phone] Encounter Details Date Type Department Care Team (Late st Contact Info) Description 07/13/2021 Telephone [facility] [place] [address] [place] [address] Roger Stevens, DO [address] [place] [address] Social History Tobacco Use Types [...] COVID-19? No / Unsure 07/06/2021 8:29 AM DIVISION CONTROLLER documented as of this encounter Miscellaneous Notes * Telephone Encounter - Lisandra Pérez - 07/13/2021 8:49 AM CST PT CANCELLED APPT TODAY, WAITING FOR RESULTS OF COVID SCREEN TEST, UNKNOWN WHEN RESULTS WILL BE IN.WILL RESCHEDULE AFTER RESULTS ARE KNOWN SION CONTROLLER documented in this encounter Plan of Treatment Upcoming Encounters Date Type Department Care Team (Late st Contact Info) Description 03/25/2025 9:15 AM CDT Lab [facility] [address] [phone] Lab, [facility] 03/25/2025 9:30 AM CDT Office Visit [facility] [address] [phone] Roger Stevens DO [address] [place] [phone] 03/25/2025 10:00 AM CDT Clinical Support [facility] [address] [phone] Nurse, [facility] documented as of this encounter Visit Diagnoses Not on filedocumented in this encounter Additional Health Concerns Assessment Noted Time PHQ-9 Depression Total Score: 0 05/14/20 21 11:19 AM DIVISION CONTROLLER documented as of this encounter Care Teams Automation Specialist Relationship Specialty Start Date End Date Casandra Merritt [address] [place] [address] PCP - General Adult Medicine 03/24/21 Roger Stevens DO [address] [place] [phone] Consulting Physician Oncology 03/24/21 Tito Brasher MD [address] [address] General Surgery 04/30/21 Tito Brasher MD [address] [address] Surgeon General Surgery 04/20/21 documented as of this encounter
--- OUTSIDE RECORDS SUMMARY | 2025-03-18 14:44 | XMS_ITS | Encounter Summary ---
Author Organization [facility] Address [address] [place] [address] Phone Care Team Providers Care Manager Financial Systems Name Role Phone Casandra Merritt Primary Care Provider [phone] Roger Stevens DO Unavailable [phone] Tito Brasher MD Unavailable [phone] Tito Brasher MD Unavailable [phone] Reason for Visit * Reason Comments Medication Refill Encounter Details Date Type Department Care Team (Late st Contact Info) Description 07/10/2023 Refill [facility] [place] [address] [place] [address] Brit Carter, WATER QUALITY ASSISTANT, MARKING MACHINE OPERATOR [address] [place] [address] Medication Refill Social History Tobacco [...] request from pharmacy. Please fill if appropriate. ER TECHNICIAN documented in this encounter Plan of Treatment Upcoming Encounters Date Type Department Care Team (Late st Contact Info) Description 03/25/2025 9:15 AM CDT Lab [facility] [address] [phone] Lab, [facility] 03/25/2025 9:30 AM CDT Office Visit [facility] [address] [phone] Roger Stevens DO [address] [place] [phone] 03/25/2025 10:00 AM CDT Clinical Support [facility] [address] [phone] Nurse, [facility] documented as of this encounter Visit Diagnoses Diagnosis Malignant neoplasm of overlapping sites of right breast in female, estrogen receptor positive (HCC) documented in this encounter Additional Health Concerns Assessment Noted Time PHQ-9 Depression Total Score: 0 05/14/20 21 11:19 AM COPIER TECHNICIAN documented as of this encounter Care Teams Manager Financial Systems Relationship Specialty Start Date End Date Casandra Merritt [address] [place] [address] PCP - General Adult Medicine 03/24/21 Roger Stevens DO [address] [place] [phone] Consulting Physician Oncology 03/24/21 Tito Brasher MD [address] [address] General Surgery 04/30/21 Tito Brasher MD [address] [address] Surgeon General Surgery 04/20/21 documented as of this encounter
--- OUTSIDE RECORDS SUMMARY | 2025-03-18 14:44 | XMS_ITS | Encounter Summary ---
Author Organization [facility] Address [address] [place] [place] [address] Phone Care Team Providers Care Frame And Scrap Crusher Name Role Phone Casandra Merritt Primary Care Provider [phone] Roger Stevens DO Unavailable [phone] Tito Brasher MD Unavailable [phone] Tito Brasher MD Unavailable [phone] Encounter Details Date Type Department Care Team (Late st Contact Info) Description 07/06/2021 Telephone [facility] [place] [address] [place] [address] Roger Stevens, DO [address] [place] [address] Social History Tobacco Use Types [...] COVID-19? No / Unsure 07/06/2021 8:29 AM SUPERVISOR WALL MIRROR DEPARTMENT documented as of this encounter Miscellaneous Notes * Telephone Encounter - Darlin Cano - 07/06/2021 8:41 AM CST Called pt and she is have sinus symptoms. Pt is scheduled to get PCR covid test Monday. Rescheduledfor next Monday. Pt to call if test results are not back by then or If it is positive. RVISOR WALL MIRROR DEPARTMENT * Telephone Encounter - Sandra Edmondson - 07/06/2021 8:24 AM CST Patient called to reschedule her infusion scheduled for today. Patient states that she has been exposed to Covid and is having flu-like symptoms. Spoke with Darlin in Infusion and she stated that she would call Mrs. Mccarty and get her rescheduled. RVISOR WALL MIRROR DEPARTMENT documented in this encounter Plan of Treatment Upcoming Encounters Date Type Department Care Team (Late st Contact Info) Description 03/25/2025 9:15 AM CDT Lab [facility] [address] [phone] Lab, [place] 03/25/2025 9:30 AM CDT Office Visit [facility] [address] [phone] Roger Stevens, DO [address] [place] [phone] 03/25/2025 10:00 AM CDT Clinical Support [facility] [address] [phone] Nurse, [facility] [place] documented as of this encounter Visit Diagnoses Not on filedocumented in this encounter Additional Health Concerns Assessment Noted Time PHQ-9 Depression Total Score: 0 05/14/20 21 11:19 AM SUPERVISOR WALL MIRROR DEPARTMENT documented as of this encounter Care Teams Frame And Scrap Crusher Relationship Specialty Start Date End Date Casandra Merritt [address] [place] [address] PCP - General Adult Medicine 03/24/21 Roger Stevens DO [address] [place] [phone] Consulting Physician Oncology 03/24/21 Tito Brasher MD [address] [place] [phone] General Surgery 04/30/21 Tito Brasher MD [address] [place] [address] [phone] Surgeon General Surgery 04/20/21 documented as of this encounter
--- NOTE | 2025-03-18 14:45 | ED.BACK ---
HPI - Back Pain/Injury General Chief Complaint: Back Pain/Injury Stated Complaint: back pain Time Seen by Provider: 03/18/25 12:27 Source: patient Mode of arrival: ambulatory Limitations: no limitations History of Present Illness HPI Narrative: 50-year-old with a history of breast CA here with complaints of low pain since yesterday he she denies any form lifting and heavy objects he denies any bladder body, nausea here she is MD elicited complaint: back pain Onset (ago): day(s) (1) Timing: constant Severity: moderate Similar Symptoms Previously: No Quality: aching Location: lumbar spine Radiation: none Exacerbating factors: movement Relieving factors: none Associated symptoms: denies other symptoms Related Data Allergies Allergy/AdvReac Type Severity Reaction Status Date / Time ibuprofen (From Motrin) AdvReac Unknown Verified 03/18/25 11:46 Review of Systems Review of Systems: All systems reviewed & are unremarkable except as noted in HPI and below Constitutional: Constitutional: Reports no additional constitutional complaints Eyes: Eyes: Reports no additional eye complaints ENT: Reports system reviewed and no additional complaints, except as documented Cardiovascular: Cardiovascular: Reports no additional cardiovascular complaints Respiratory: Respiratory: Reports no additional respiratory complaints Gastrointestinal: Gastrointestinal: Reports no additional gastrointestinal complaints Musculoskeletal: Musculoskeletal: Reports as per HPI Exam Narrative: GENERAL: Well-appearing, well-nourished, and in no acute distress. HEAD: Normocephalic, atraumatic. EYES: PERRLA and EOMI. ENT: Nares clear, no rhinorrhea or epistaxis. Mucous membranes moist. NECK: Supple. CHEST: Clear to auscultation. No respiratory distress. HEART: Regular rate and rhythm. No murmur heard. Normal peripheral pulses. EXTREMITIES: Normal range of motion. No edema. SKIN: Warm, dry, no rash. NEURO: No focal deficits. Alert and oriented x3. PSYCH: Normal mood and affect. Course Course Emergency Course: Patient did receive IV morphine for pain control did obtain labs and CT of the lumbar spine which were unremarkable. Patient feeling much better the pain medication. Advised to take pain medication as prescribed, follow-up with the primary doctor Vital Signs Vital signs: Vital Signs Temperature 36.4 C L 03/18/25 12:23 Pulse Rate 95 03/18/25 12:23 Respiratory Rate 18 03/18/25 12:23 Blood Pressure 96/69 L 03/18/25 12:23 Pulse Oximetry 99 03/18/25 12:23 Temperature 36.4 C L 03/18/25 12:23 Pulse Rate 95 03/18/25 12:23 Respiratory Rate 18 03/18/25 12:23 Blood Pressure 96/69 L 03/18/25 12:23 Pulse Oximetry 99 03/18/25 12:23 MDM - Back Pain/Injury Differential Diagnosis Differential diagnosis: Likely lumbar radiculopathy, strain of lumbar region and discitis Medical Records Attestation: I reviewed the patient's medical records. Lab Data Attestation: I reviewed the patient's lab results. 03/18/25 13:59 03/18/25 13:59 Labs: Lab Results 03/18/25 03/18/25 Range/Units 13:59 14:03 WBC 9.8 (4.5-10.0) K/mm3 RBC 4.68 (4.2-5.4) M/mm3 Hgb 12.5 (12.0-15.0) g/dL Hct 38.9 (37.0-47.0) % MCV 83.1 (80-100) fl MCH 26.7 (26-34) pg MCHC 32.1 (32-36) g/dl RDW 13.6 (11.5-14.5) % Plt Count 248 (150-375) k/mm3 MPV 10.1 (7.4-10.4) fl Immature Gran % (Auto) 0.3 (0-0.5) % Neut % (Auto) 77.7 H (45.5-73.1) % Lymph % (Auto) 15.1 L (18.3-44.2) % [place] % (Auto) 5.2 (2.6-8.5) % Eos % (Auto) 1.4 (0-4.4) % Baso % (Auto) 0.3 (0.2-1.2) % Lymph # (Auto) 1.48 (0.9-3.2) K/mm3 [place] # (Auto) 0.5 (0.1-0.6) K/mm3 Eos # (Auto) 0.1 (0-0.3) K/mm3 Baso # (Auto) 0.0 (0.0-0.1) K/mm3 Abs Immat Gran (auto) 0.03 (0.00-0.031) K/mm3 Absolute Neuts (auto) 7.6 H (1.3-6.7) K/mm3 Absolute Nucleated RBC 0.000 (0.0-0.012) K/mm3 Nucleated RBC % 0.0 (0.0-0.2) % Sodium 140 (137-145) mmol/L Potassium 3.9 (3.4-5.0) mmol/L Chloride 106 (98-107) mmol/L Carbon Dioxide 27 (22-30) mmol/L Anion Gap 7 (4-12) mmol/L BUN 14 (7-17) mg/dL Creatinine 0.98 (0.7-1.0) mg/dL Estim Creat Clear Calc 59 ml/min Estimated GFR 60 (59 - ) Glucose 122 H (65-110) mg/dL Calcium 9.3 (8.4-10.2) mg/dL Urine Color Yellow (Yellow) Urine Appearance Cloudy H (Clear) Urine pH 5.5 (5.0-9.0) Ur Specific [place] 1.032 (1.001-1.035) Urine Protein Negative (Negative) mg/dL Urine Glucose (UA) Negative (Negative) mg/dL Urine Ketones Trace H (Negative) mg/dL Ur Blood (Man) Negative (Negative) Urine Nitrate Negative (Negative) Urine Bilirubin Negative (Negative) Urine Urobilinogen 0.2 (<2.0) mg/dL Leukocyte Esterase Rfl Trace H (Negative) BROOKE/UL Urine RBC 3-5 H (0-2) /hpf Urine WBC 0-5 (0-3) /hpf Ur Squamous Epith Cells None seen (Few) /hpf Urine Bacteria None seen /hpf Urine Casts 0-2 Imaging Data Radiologist's impression: ITS Impressions Lumbar Spine CT 03/18/25 13:51 IMPRESSION: 1. Mild lumbar spondylosis. Discharge Plan Discharge Clinical Impression: Strain of lumbar region Qualifiers: Encounter type: initial encounter Qualified Code(s): S39.012A - Strain of muscle, fascia and tendon of lower back, initial encounter Patient Disposition: Home Condition: Stable Instructions: Back Pain (ED) Patient Language: Kazakh Prescriptions: New hydrocodone-acetaminophen 5-325 mg tablet 1 tablet PO Q8H PRN (Reason: pain) Qty: 14 0RF Follow-up/Referrals: Sajid,Rj M., MD [Physician, Family Practice] UNKNOWN,DOCTOR [Primary Care Provider] Time of Disposition: 14:48
[2025-03-18 14:55] VITALS: BP 110/68; PULSE 82; RESP 16; O2SAT 100
[2025-03-18 15:12] VITALS: BP 110/68; PULSE 82; RESP 16; O2SAT 100
== END 2025-03-18 15:00 | disposition home or self-care (01) ==
PROVIDERS: Emergency Provider Family Medicine
DX: S39.012A Strain of muscle, fascia and tendon of lower back, initial encounter (principal); Z85.3 Personal history of malignant neoplasm of breast; M47.816 Spondylosis without myelopathy or radiculopathy, lumbar region; X58.XXXA Exposure to other specified factors, initial encounter
CPT/HCPCS: 36415; 72131; 80048; 81001; 85025; 96374; 96375; 99284; J2270; J2405